=== PATIENT | female | born 1975 | race Caucasian/White ===

== ENCOUNTER 2019-09-21 22:22 | Inpatient (IN) | payer OTHER ==
[~2019-09-21] VITALS: Ht 165.1 cm; Wt 83.1 kg
[~2019-09-21 22:22] MED LIST: BACTRIM DS TAB1 EACH PO; NORCO 5-325 TA1 EACH PO
[2019-09-21 22:58] VITALS: BP 159/103
[2019-09-22 02:27] LABS: ABSOLUTE BASOPHILS 0.1 thou/uL (0.0-0.2); ABSOLUTE EOSINOPHILS 0.1 thou/uL (0.0-0.7); ABSOLUTE LYMPHOCYTES 3.7 thou/uL (0.8-5.3); ABSOLUTE MONOCYTES 0.8 thou/uL (0.0-1.2); ABSOLUTE NEUTROPHILS 5.8 thou/uL (1.6-8.1); BASOPHILS 0.7 %; EOSINOPHILS 1.4 %; HEMATOCRIT 43.8 % (37.0-47.0); HEMOGLOBIN 15.1 gm/dL (12.0-15.0); MCH 29.9 pg (26.0-34.0); MCHC 34.5 g/dL (28.0-37.0); MCV 86.8 fL (80.0-100.0); MONOCYTES 7.6 %; MPV 7.4 fl. (7.2-11.1); NUCLEATED RBCS 0 /100WBC; PLATELET COUNT* 328 thou/uL (150-400); POLYS 55.3 %; RBC 5.05 mil/uL (4.20-5.00); WBC 10.5 thou/uL (4.0-11.0)
[2019-09-22 02:31] LABS: CALCIUM 9.5 mg/dL (8.5-10.1); CREATININE 0.7 mg/dL (0.6-1.3); POTASSIUM 3.8 mmol/L (3.5-5.1)
[2019-09-22 02:33] LABS: URINE BILIRUBIN NEGATIVE (Negative); URINE BLOOD NEGATIVE (Negative); URINE CLARITY CLEAR; URINE COLOR YELLOW; URINE GLUCOSE-RANDOM NEGATIVE (Negative); URINE KETONES NEGATIVE (Negative); URINE LEUKOCYTES-REFLEX NEGATIVE (Negative); URINE NITRITE-REFLEX NEGATIVE (Negative); URINE PROTEIN NEGATIVE (Negative); URINE SPECIFIC GRAVITY 1.025 (1.005-1.030); URINE UROBILINOGEN 0.2 E.U./dl (0.2-1.0)
[2019-09-22 02:35] LABS: ALBUMIN 3.7 g/dL (3.4-5.0); TOTAL BILIRUBIN 0.2 mg/dL (<0.1-1.0); TOTAL PROTEIN 7.3 g/dL (6.4-8.2)
[2019-09-22 05:45] VITALS: BP 122/54
[2019-09-22 05:56] VITALS: BP 108/68
--- NOTE | 2019-09-22 06:15 | NUR ---
0545 ALERT AND ORIENTED X 4 FEMALE PATIENT TO ROOM 201 BY CART FROM ER IN STABLE CONDITION. PATIENT ABLE TO MOVE FROM CART TO BED INDEPENDENTLY. VITAL SIGNS STABLE. ADMISSION ROUTINES IN PROGRESS. CONTINUE TO MONITOR.
[2019-09-22] MEDS ORDERED: VICODIN ES 7.51 EACH PO (07:21)
[2019-09-22 08:00] VITALS: BP 94/53
--- NOTE | 2019-09-22 09:22 | NUR ---
REPORT CALLED TO HERNANDEZ CASAS ON
[2019-09-22 16:00] VITALS: BP 88/57
--- NOTE | 2019-09-22 17:28 | NUR ---
PT ARRIVED FROM TELE ABOUT 1000. VITALS STABLE. IV PATNET, INFUSING. NPO DUE TO POSSBILE SURGERY. MODERATE PAIN, DENIED PAIN MEDS. DENIED N/V. BM YESTERDAY. UP AD TONE. CALL LIGHT WITHIN REACH. WILL CONTINUE TO MONITOR.
[2019-09-22 20:30] VITALS: BP 120/54
--- NOTE | 2019-09-23 06:44 | NUR ---
PT SLEPT ON AND OFF OVERNIGHT SHE STATES. RECEIVING PAIN MED AT HS AND THIS MORNING UPON AWAKENING FOR UPPER MID ABD PAIN 07/06 WITH GOOD RESULTS. UP AD TONE TO BR TO VOID. PATTI LUTZ IV. ABLE TO USE CALL LITE AND MAKE NEEDS KNOWN.
[2019-09-23 07:34] LABS: HEMOGLOBIN 13.9 gm/dL (12.0-15.0); MCH 29.7 pg (26.0-34.0); MCV 87.2 fL (80.0-100.0); MPV 7.6 fl. (7.2-11.1); RBC 4.7 mil/uL (4.20-5.00); WBC 8.1 thou/uL (4.0-11.0)
[2019-09-23 07:55] LABS: ALBUMIN 3.1 g/dL (3.4-5.0); CALCIUM 8.6 mg/dL (8.5-10.1); CREATININE 0.6 mg/dL (0.6-1.3); MAGNESIUM 2.1 mg/dL (1.8-2.4); PHOSPHORUS* 2.5 mg/dL (2.5-4.9); POTASSIUM 3.6 mmol/L (3.5-5.1); TOTAL BILIRUBIN 0.5 mg/dL (<0.1-1.0); TOTAL PROTEIN 6.2 g/dL (6.4-8.2)
[2019-09-23 08:00] VITALS: BP 114/70
[2019-09-23 12:12] VITALS: BP 114/70
--- NOTE | 2019-09-23 17:39 | NUR ---
SW attempted to meet with pt to complete initial assessment; pt was off of unit. SW to remain available to assist with safe dc planning if needs arise.
--- NOTE | 2019-09-23 17:53 | NUR ---
PT A&OX4 VSS. PT NPO THIS AM FOR SCHEDULED HERNIA REPAINR THIS AFTERNOON. CONSENT SIGNED AND ON CHART PRIO TO PROCEDURE. PT UP TO BATHE PRIOR TO SX. IV TO RAC PATENT/SALINE LOCKED. PT UP AD TONE, GAIT STEADY. NO COMPLAINTS/CONCERNS VOICED PRIOR TO LEAVING THE UNIT FOR SURGERY. PT LEFT UNIT APPROX 1445 ON BED WITH SPOUSE ACCOMPANYING. PT REMAINS OFF UNIT AT THIS TIME.
[2019-09-23 19:00] VITALS: BP 113/64; BP 114/43
--- NOTE | 2019-09-23 19:00 | NUR ---
PT IN ROOM BACK FROM SURGERY, DISC PAD GRINDER GIVING REPORT TO 3W DAY RN. ABD INCISION WITH PATRICIAG CDI. PT DENIES NEED FOR PAIN MED AT THIS TIME-RECIEVED MEDS IN PACU. TOLERATING CLEARS WITHOUT N/V. RFA SL IV. FAMILY AT BEDSIDE, CALL LITE IN EASY REACH. BED ALARM ON FOR SAFETY. WILL CONTINUE TO MONITOR AND PROVIDE CARES NEEDED.
[2019-09-24] VITALS: BP 83/55
[2019-09-24 04:08] VITALS: BP 101/53
--- NOTE | 2019-09-24 05:53 | NUR ---
PT SLEPT OFF AND ON OVERNIGHT. RECEIVING PRN PO AND IV MEDICATION WITH FAIR RESULT. ABD SID CDI. UP WITH ASSIST FROM BED TO BSC TO VOID. TOLERATING CLEAR LIQUIDS WITHOUT N/V. RFA SL. SCDS ON.ABLE TO USE CALL LITE AND MAKE NEEDS KNOWN. PT WANTS TO RECEIVE FLU SHOT HERE BEFORE SHE DISCHARGES. 02 2L ON OVERNIGHT PRN TO KEEP SATS >90%.
[2019-09-24 07:45] VITALS: BP 90/48
[2019-09-24 12:01] VITALS: BP 90/48
[2019-09-24] MEDS ORDERED: SENNA PLUS TAB1 EACH PO (12:54)
[2019-09-24] MEDS ORDERED: ACETAMINOPHEN325 MG PO (12:55)
[2019-09-24] MEDS ORDERED: LAXATIVE5 M1 PO (12:56)
--- NOTE | 2019-09-24 13:52 | NUR ---
PT A&OX4 VSS. PT AMB IN [place] UNASSISTED GAIT STEADY. PT TOLERATES FOOD AND BEVERAGES, NO COMPLAINTS. PT AND SPOUSE STATE UNDERSTANDING OF DC INSTRUCTIONS. IV DC FROM RAC, NO REDNESS/SWELLING NOTED AT SITE. PT SX SITE CLEAN/DRY/INTACT. PT LEAVES UNIT IN WC WITH ALL PERSONAL BELONGINGS.
--- NOTE | 2019-09-26 17:06 | PATH ---
[address] [address] PATHOLOGY RPT PROCEDURE Name: TRINITY LEROY Room: [address] IN .R.#: [id number] Admission: 09/22/19 Date of : 73 Discharge: 09/24/19 Report #: [id number] Path Case #: [id number] [facility] Accession Number: [id number] . 01 Material submitted: . hernia - HERNIA SAC AND CONTENTS . 01 Clinical history: . Epigastric hernia . 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 See comment. . (YAZAN:beatriz; 09/26/2019) QMS 09/26/2019 1021 Local . 02 Comment: Properly controlled immunohistochemical stains are performed on A1 to assess several gland-like foci with results as follows, supporting them to represent mesothelial invaginations: . Calretinin: Positive. Estrogen receptor: Negative. . (YAZAN:beatriz; 09/26/2019) . 02 Electronically signed: . Forest Agarwal MD, Pathologist NPI- [id number] . 01 Gross description: . The specimen is received in formalin labeled "Trinity Leroy, hernia sac and contents". Further specification of the specimen source is not listed on the container. The clinical history is listed on the requisition as "epigastric hernia". Received is a segment of yellow, lobulated adipose tissue with scant attached henry-angel fibromembranous tissue measuring 4.5 x 4.5 x 2.8 cm in greatest dimensions. An opening is identified at one aspect of the specimen, measuring 1.7 x 0.8 cm. Serial sectioning reveals lobular, pale yellow cut surfaces with scant pink-angel soft tissue. An interior pouch lined with wrinkled, henry-angel membranous tissue is identified upon sectioning that communicates with the opening. Provider Scribe sections of the interior pouch lining and surrounding tissue are submitted in cassette A1. (DAC; 09/24/2019) . Additional patient intake representative sections to include fibrous/[place] [address] PATHOLOGY RPT PROCEDURE Name: DIANNTRINITY KINCAID Room: [address] DIS IN M.R.#: [id number] Admission: 09/22/19 Date of : 73 Discharge: 09/24/19 Report #: [id number] Path Case #: [id number] are submitted in A2-A4. (SDY; 09/25/2019) XDC/XDC 09/26/2019 1019 Local . 02 Pathologist provided ICD-10: K44.9 . 02 CPT . 843670, J18345, T23755 Specimen Comment: A courtesy copy of this report has been sent to [phone] Specimen Comment: [phone] Specimen Comment: Report sent to and Performed at: [address] [facility] [address], [place], [place] [id number] MD Ravinder Magallanes MD Phone: [phone] Performed at: [address] [facility] [address] [address], [place], [place] [id number] MD Forest Agarwal MD Phone: [phone]
--- NOTE | 2019-10-08 13:35 | OP ---
[address] [address] OPERATIVE REPORT Name: TRINITY KENDRICK Carrillo Room: [address] IN M.R.#: [id number] Admission: 09/22/19 Attend Phys: Maureen Webb Discharge: 09/24/19 Date of : 73 Report #: [id number] THIS REPORT FOR: //name// CC: [facility] physician/PCP Uriel Ontiveros DICTATED BY: Sherley Tee DO DATE OF SERVICE: 09/23/2019 PREOPERATIVE DIAGNOSIS: Incarcerated ventral hernia. POSTOPERATIVE DIAGNOSIS: Incarcerated ventral hernia. PROCEDURE PERFORMED: Ventral hernia repair with mesh. PRIMARY SURGEON: Josias Beltran DO. MANAGER REPORTING: Sherley Tee DO, PGY2. SECOND FASHION DESIGN PROFESSOR: REHAN Richardson student. ANESTHESIA: General and local. ESTIMATED BLOOD LOSS: 10 FINDINGS: A 1.5 x 1.5 cm fascial defect just to the right of midline, approximately 5-6 cm superior to the umbilicus containing incarcerated preperitoneal fat. COMPLICATIONS: None. INDICATIONS: The patient isha is a pleasant 44-year-old female that presented to the Emergency Department on 09/22 with complaints of progressively worsening sudden onset epigastric abdominal pain. The pain continued to get worse as the day went on, which prompted her to seek medical attention. Workup in the Emergency Department was initially fairly unrevealing; however, upon further review of the CT abdomen and pelvis that was performed, it was noted that there was likely a small hernia in the supraumbilical region that was potentially causing her pain. She was admitted for further observation. Today, she continued to have pain, so it was recommended that she undergo ventral hernia repair with mesh. The procedure, risks, benefits, possible complications to include bleeding, infection, injury to surrounding structures, mesh complications, recurrence of the hernia, risks of anesthesia and other risks of surgery were all discussed with the patient in detail. She voiced complete understanding and wished [place] [address] OPERATIVE REPORT Name: TRINITY KENDRICK Room: [address] IN ..#: [id number] Admission: 09/22/19 Attend Phys: Maureen Webb Discharge: 09/24/19 Date of : 73 Report #: [id number] DESCRIPTION OF PROCEDURE: Informed consent was obtained. The patient was taken to the operating room and placed supine on the operating room table. Preoperative antibiotics were given. SCDs were placed on bilateral lower extremities. General anesthesia was induced without difficulty. The patient was prepped and draped in standard sterile fashion. Timeout was performed to ensure correct patient and procedure. We began by making a 4 cm vertical incision approximately 4 cm superior to the umbilicus using a #15 blade scalpel. Incision was carried down through the subcutaneous tissue using electrocautery carried our dissection down almost to the level of the fascia until we encountered what appeared to be a hernia sac containing some preperitoneal fat. We then dissected this hernia sac out using a combination of blunt dissection and electrocautery until we reached the level of the fascia. Once we had cleared off our fascial edges, it was very obvious that the hernia sac and contents were too large to reduce back through the fascial defect, so this was excised using electrocautery and passed off for specimen. Finger was inserted through the fascial defect and a sweep was performed to ensure there were no surrounding adhesions that would prevent her mesh from lying flat. We then elected to use a 6.[address] [place] mesh, was brought into the field, dipped in saline and then inserted through our fascial defect. Once adjusted appropriately, we then secured the mesh in place and closed the fascial defect using 0 Prolene suture in a simple interrupted fashion. Approximately 30 mL of 5% Marcaine were injected for local anesthesia. Subcutaneous tissue was closed using 3-0 Vicryl suture in a simple interrupted and inverted fashion. Skin was closed using 4-0 Monocryl suture in running subcuticular fashion. The patient tolerated the procedure very well. She was allowed to awaken in the operating room. Sterile dressings were applied using Mastisol, Steri-Strips, Tegaderms, 4 x 4s. She was then transferred to the PACU in stable condition with plans to return to the floor. <ELECTRONICALLY SIGNED> By: Josias Beltran DO 10/08/19 1335 1717 1748Aarmando Beltran DO /nt
== END 2019-09-24 13:47 | disposition home or self-care (01) | DRG 354 ==
LOC: M.ERS 22:22 → M.3W 09-22 05:30 → M.TBA-ER 09-22 05:30 → M.2W 09-22 05:38 → M.3W 09-22 09:46
PROVIDERS: Personal Emergency Response Attendant; ADMIT Internal Medicine
PROC: 0WUF0JZ Supplement Abdominal Wall with Synthetic Substitute, Open Approach (ICD-10-PCS; principal; 2019-09-23)
DX: K43.6 Other and unspecified ventral hernia with obstruction, without gangrene (principal); E44.1 Mild protein-calorie malnutrition; G89.29 Other chronic pain; F17.210 Nicotine dependence, cigarettes, uncomplicated; E66.9 Obesity, unspecified; K21.9 Gastro-esophageal reflux disease without esophagitis; M47.819 Spondylosis without myelopathy or radiculopathy, site unspecified; Z90.710 Acquired absence of both cervix and uterus; Z79.899 Other long term (current) drug therapy; Z88.8 Allergy status to other drugs, medicaments and biological substances; Z98.1 Arthrodesis status; Z87.442 Personal history of urinary calculi; Z68.30 Body mass index [BMI] 30.0-30.9, adult; Z23 Encounter for immunization